=== PATIENT | female | born 1990 | race Caucasian/White ===

== ENCOUNTER 2022-11-06 20:53 | Emergency (ER) | payer SELFPAY | END 2022-11-06 23:13 | disposition home or self-care (01) | LOC: CSHERS 20:53 | DX: T23.211A Burn of second degree of right thumb (nail), initial encounter (principal); T23.101A Burn of first degree of right hand, unspecified site, initial encounter; X19.XXXA Contact with other heat and hot substances, initial encounter | CPT/HCPCS: 99284 ==